=== PATIENT | male | born 1980 | race American Indian/Alaskan Native ===

== ENCOUNTER 2021-04-22 08:27 | Emergency (ER) | payer OTHER ==
--- NOTE | 2021-04-22 08:54 | Emergency Department Report ---
ED General Adult HPI - General Chief complaint: Abdominal Pain Stated complaint: LOWER ABD PAIN Time Seen by Provider: 04/22/21 08:49 Source: patient Mode of arrival: Ambulatory Limitations: No Limitations - History of Present Illness Initial comments: 41-year-old male presents to the emergency room for 3-day history of left lower waist pain that radiates to his left thigh anteriorly. Patient states he feels the pain more when he lifts heavy objects or turns to the right and left. He denies any testicular pain or testicular swelling no penile discharge no dysuria no diarrhea no nausea no vomiting no chest pain or shortness of breath. Patient has not taken anything for pain. 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 Patient states he had this once before in his back and was prescribed medication and went away. Patient denies any fall or injury. Onset/Timin -: month(s) Severity scale (0 -10): 6 Quality: aching Consistency: intermittent Improves with: none Worsens with: none Associated Symptoms: denies other symptoms Treatments Prior to Arrival: none - Related Data Previous Rx's Medication Instructions Recorded Last Taken Type Ibuprofen [Motrin 800 MG tab] 800 mg PO Q8HR PRN #30 tablet 04/22/21 Unknown Rx Allergies Allergy/AdvReac Type Severity Reaction Status Date / Time No Known Allergies Allergy Unverified 04/22/21 08:29 ED Review of Systems ROS: Stated complaint: LOWER ABD PAIN Other details as noted in HPI Comment: All other systems reviewed and negative ED Past Medical Hx - Past Medical History Previous Medical History?: No - Surgical History Past Surgical History?: No - Medications Home Medications: Home Medications Medication Instructions Recorded Confirmed Last Taken Type Ibuprofen [Motrin 800 MG tab] 800 mg PO Q8HR PRN #30 tablet 04/22/21 Unknown Rx ED Physical Exam - General Limitations: No Limitations General appearance: alert, in no apparent distress - Head Head exam: Present: atraumatic, normocephalic - Eye Eye exam: Present: normal appearance - ENT ENT exam: Present: mucous membranes moist - Neck Neck exam: Present: normal inspection - Respiratory Respiratory exam: Present: normal lung sounds bilaterally. Absent: respiratory distress - Cardiovascular Cardiovascular Exam: Present: regular rate, normal rhythm. Absent: systolic murmur, diastolic murmur, rubs, gallop - GI/Abdominal GI/Abdominal exam: Present: soft, normal bowel sounds. Absent: distended, tenderness, guarding - Rectal Rectal exam: Present: deferred - Extremities Exam Extremities exam: Present: normal inspection. Absent: full ROM, tenderness, pedal edema - Back Exam Back exam: Present: normal inspection, full ROM, tenderness - Neurological Exam Neurological exam: Present: alert, oriented X3, normal gait - Psychiatric Psychiatric exam: Present: normal affect, normal mood - Skin Skin exam: Present: warm, dry, intact, normal color. Absent: rash ED Course Vital Signs 04/22/21 08:29 Temperature 97.5 F L Pulse Rate 74 Respiratory 18 Rate Blood Pressure 110/72 [Right] O2 Sat by Pulse 97 Oximetry ED Medical Decision Making - Medical Decision Making 41-year-old male presents to the emergency room for 3-day history of left lower waist pain that radiates to his left thigh anteriorly. Patient states he feels the pain more when he lifts heavy objects or turns to the right and left. He denies any testicular pain or testicular swelling no penile discharge no dysuria no diarrhea no nausea no vomiting no chest pain or shortnes s of breath. Patient has not taken anything for pain. 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 Patient states he had this once before in his back and was prescribed medication and went away. Patient denies any fall or injury. Discussed with patient to try Tylenol ibuprofen for pain management. And follow-up with a primary care provider. Critical care attestation.: If time is entered above; I have spent that time in minutes in the direct care of this critically ill patient, excluding procedure time. ED Disposition Clinical Impression: Thigh pain, musculoskeletal Disposition: 01 HOME / SELF CARE / HOMELESS Is pt being admited?: No Does the pt Need Aspirin: No Condition: Stable Instructions: Pain Without a Known Cause Additional Instructions: Recommend Tylenol ibuprofen for pain. Increase your fluid intake and follow-up with a primary care provider. Prescriptions: Ibuprofen [Motrin 800 MG tab] 800 mg PO Q8HR PRN #30 tablet PRN Reason: Pain , Severe (7-10) Referrals: XI SANDOVAL MD [Staff Physician] - 3-5 Days Forms: Work/School Release Form(ED) Time of Disposition: 08:54
[2021-04-22 09:02] VITALS: BP 110/66
== END 2021-04-22 09:03 | disposition home or self-care (01) ==
LOC: ED 08:27
DX: M79.652 Pain in left thigh (principal); M79.18 Myalgia, other site; R10.30 Lower abdominal pain, unspecified; Z79.899 Other long term (current) drug therapy
CPT/HCPCS: 99282